=== PATIENT | male | born 1970 | race African-American/Black ===

== ENCOUNTER 2018-11-14 10:00 | Day surgery (SDC) | payer OTHER ==
[~2018-11-14] VITALS: Ht 170.2 cm; Wt 111.6 kg
[~2018-11-14 10:00] MED LIST: NS 1,000 ML IV ONE; PROAAER10 INH
[2018-11-14] MEDS ORDERED: PROPOFOL 500 MG/50 ML VIAL As Ordered ONE (11:26)
[2018-11-14] MEDS ORDERED: LIDOCAINE 2% INJ 100 MG/5 ML SDV (FOR ANES.) As Ordered ONE (11:26)
--- NOTE | 2018-11-14 11:47 | ROOR ---
Patient Name: Ishaan Mistry Procedure Date: 11/14/2018 11:20 AM Date of : 1970 Age: 48 Room: [facility] Gender: Male Note Status: Finalized Procedure: Colonoscopy Indications: Screening for colorectal malignant neoplasm Providers: Maurice Ronquillo MD Referring MD: [facility], Admin. Requesting Provider: Medicines: Monitored Anesthesia Care Complications: No immediate complications. Procedure: Pre-Anesthesia Assessment: - Prior to the procedure, a History and Physical was performed, and patient medications and allergies were reviewed. The patient is competent. The risks and benefits of the procedure and the sedation options and risks were discussed with the patient. All questions were answered and informed consent was obtained. Patient identification and proposed procedure were verified by the physician, the nurse and the anesthesiologist in the endoscopy suite. Mental Status Examination: alert and oriented. Airway Examination: normal oropharyngeal airway and neck mobility. Respiratory Examination: clear to auscultation. CV Examination: normal. Prophylactic Antibiotics: The patient does not require prophylactic antibiotics. Prior Anticoagulants: The patient has taken no previous anticoagulant or antiplatelet agents. ASA Grade Assessment: II - A patient with mild systemic disease. After reviewing the risks and benefits, the patient was deemed in satisfactory condition to undergo the procedure. The anesthesia plan was to use monitored anesthesia care (MAC). Immediately prior to administration of medications, the patient was re-assessed for adequacy to receive sedatives. The heart rate, respiratory rate, oxygen saturations, blood pressure, adequacy of pulmonary ventilation, and response to care were monitored throughout the procedure. The physical status of the patient was re-assessed after the procedure. The Colonoscope was introduced through the anus and advanced to the cecum, identified by appendiceal orifice and ileocecal valve. The colonoscopy was performed without difficulty. The patient tolerated the procedure well. The quality of the bowel preparation was good. Findings: The perianal and digital rectal examinations were normal. A 5 mm polyp was found in the cecum. The polyp was sessile. The polyp was removed with a cold snare. Resection and retrieval were complete. Estimated blood loss was minimal. The entire examined colon appeared normal. No additional abnormalities were found on retroflexion. Impression: - One 5 mm polyp in the cecum, removed with a cold snare. Resected and retrieved. - The entire examined colon is normal. Recommendation: - Discharge patient to home (ambulatory). - Repeat colonoscopy in 5 years for surveillance. - Await pathology results. Maurice Ronquillo MD Maurice Ronquillo MD 11/14/2018 11:47:22 AM Electronically signed by Maurice Ronquillo MD Number of Addenda: 0 Note Initiated On: 11/14/2018 11:20 AM Estimated Blood Loss: Estimated blood loss: none.
[2018-11-14 12:09] VITALS: BP 147/91
== END 2018-11-14 12:15 | disposition home or self-care (01) ==
LOC: M OPP 10:00
PROVIDERS: ATTEND Surgery
DX: D12.0 Benign neoplasm of cecum (principal); Z12.11 Encounter for screening for malignant neoplasm of colon

== ENCOUNTER 2025-03-26 08:31 | Day surgery (SDC) | payer OTHER ==
[~2025-03-26] VITALS: Ht 170.2 cm; Wt 112.5 kg
[~2025-03-26 08:31] MED LIST changes: +BLAC4.5O PO; +EZET10TA58 PO; +METO1TAB7 PO; -NS 1,000 ML IV ONE; +ROSU40TA81 PO; +THERTAB52 PO; +VENTAER INH; +VITA100093 PO
[2025-03-26] MEDS ORDERED: LIDOCAINE 2% 100 MG/5 ML SDV (FOR ANES.) As Ordered ONE (10:21)
[2025-03-26 11:11] VITALS: TEMP 97.3
[2025-03-26 11:25] VITALS: BP 147/81; O2SAT 100
== END 2025-03-26 11:38 | disposition home or self-care (01) ==
LOC: M OPP 08:31
PROVIDERS: ATTEND Surgery
DX: D12.3 Benign neoplasm of transverse colon (principal); Z86.0100 Personal history of colon polyps, unspecified; Z80.0 Family history of malignant neoplasm of digestive organs; Z91.013 Allergy to seafood; Z79.899 Other long term (current) drug therapy; J45.909 Unspecified asthma, uncomplicated